=== PATIENT | female | born 2000 | race Caucasian/White ===

== ENCOUNTER 2018-12-27 18:14 | Emergency (ER) | payer SELFPAY ==
--- NOTE | 2018-12-27 19:18 | ED ---
Allergic Reaction/Systemic - HPI Summary HPI Summary: 18-year-old female presents with rash today. States that she was out running in the [place]. She developed a rash shortly after. She states the rash is itchy. rash was all over her body but mostly on her arms. she denies any chest pain or shortness of breath. No abdominal pain nausea or vomiting. No sore throat. never had this rash before. took some Zyrtec and rash has mostly resolved. - History of Current Complaint Chief Complaint: EDRashSkinAbscess Time Seen by Provider: 12/27/18 19:09 Pain Intensity: 0 - Allergies/Home Medications Allergies/Adverse Reactions: Allergies Allergy/AdvReac Type Severity Reaction Status Date / Time No Known Allergies Allergy Verified 12/27/18 18:19 PMH/Surg Hx/FS Hx/Imm Hx Endocrine/Hematology History: Denies: Hx Anticoagulant Therapy Respiratory History: Denies: Hx Asthma Infectious Disease History: No Infectious Disease History: Denies: Traveled Outside the [place] in Last 30 Days - Family History Known Family History: Positive: Non-Contributory - Social History Substance Use Type: Reports: None Smoking Status (MU): Never Smoked Tobacco Review of Systems Negative: Fever Negative: Chest Pain Negative: Shortness Of Breath Positive: Rash All Other Systems Reviewed And Are Negative: Yes Physical Exam Triage Information Reviewed: Yes Vital Signs On Initial Exam: Initial Vitals Temp Pulse Resp BP Pulse Ox 97.4 F 85 16 96/68 99 12/27/18 18:17 12/27/18 18:17 12/27/18 18:17 12/27/18 18:17 12/27/18 18:17 Vital Signs Reviewed: Yes Appearance: Positive: Well-Appearing Skin: Positive: Warm, Dry, Other - scattered urticaria to back Head/Face: Positive: Normal Head/Face Inspection Eyes: Positive: Normal, EOMI, SAMANTHA, Conjunctiva Clear ENT: Positive: Pharynx normal Respiratory/Lung Sounds: Positive: Clear to Auscultation, Breath Sounds Present Cardiovascular: Positive: Normal, RRR Abdomen Description: Positive: Nontender, Soft Bowel Sounds: Positive: Present Musculoskeletal: Positive: Normal Neurological: Positive: Normal Psychiatric: Positive: Normal Diagnostics - Vital Signs Vital Signs Temp Pulse Resp BP Pulse Ox 12/27/18 18:17 97.4 F 85 16 96/68 99 - Laboratory Lab Statement: Any lab studies that have been ordered have been reviewed, and results considered in the medical decision making process. Allergic Reaction Course/Dx - Course Course Of Treatment: 18-year-old female presents with rash today. States that she was out running in the wood. She developed a rash shortly after. She states the rash is itchy. rash was all over her body but mostly on her arms. she denies any chest pain or shortness of breath. No abdominal pain nausea or vomiting. No sore throat. never had this rash before. took some Zyrtec and rash has mostly resolved. On exam mild urticaria on back but no were else. Told to continue the Zyrtec and can add benadryl if have breakthrough hives. Told if develop any new symptoms to return. Patient understands and agrees with plan. - Diagnoses Differential Diagnosis/HQI/PQRI: Positive: Anaphylaxis, Local Allergic Reaction , Urticaria Provider Diagnoses: Rash Discharge - Sign-Out/Discharge Documenting (check all that apply): Patient Departure Patient Received Moderate/Deep Sedation with Procedure: No - Discharge Plan Condition: Good Disposition: HOME Patient Education Materials: Urticaria (ED) Referrals: No Primary Care Phys,NOPCP [Primary Care Provider] - Additional Instructions: continue zytrec daily for next 5 days can add on benadryl every 6 hours if have break through rash but will make you tired can apply hydrocortisone to areas with rash for itching Take ibuprofen for pain every 6 hours Return to ED if develop any new or worsening symptoms - Billing Disposition and Condition Condition: GOOD Disposition: Home
[2018-12-27 19:48] VITALS: BP 86/55
== END 2018-12-27 19:47 | disposition home or self-care (01) ==
LOC: ED 18:14
DX: R21 Rash and other nonspecific skin eruption (principal)
CPT/HCPCS: 99281